=== PATIENT | female | born 1985 | race Caucasian/White ===

== ENCOUNTER 2016-06-10 15:44 | Emergency (ER) | payer SELFPAY ==
[2016-06-10] MEDS ORDERED: Haloperidol Lactate 5 MG/ML SDV IVPUSH ONE (16:06)
[2016-06-10] MEDS ORDERED: diphenhydrAMINE 50 MG/ML SDV IVPUSH ONE (16:08)
[2016-06-10] MEDS ORDERED: LORazepam 2 MG/ML MDV IVPUSH ONE (16:08)
[2016-06-10] MEDS ORDERED: Sodium Chloride 0.9% 1,000 ML IV ONE (16:09)
[2016-06-10] MEDS ORDERED: Sodium Chloride 0.9% 10 ML Syringe FLUSH PRN ×2 (16:10→17:38)
[2016-06-10 16:39] LABS: ACETAMINOPHEN 3.3 ug/mL (10.0-30.0); CHLORIDE,CL 103 mmol/L (98-107); SODIUM,NA 139 mmol/L (136-145)
--- NOTE | 2016-06-10 17:22 | EDM.PDOC ---
ED HPI GENERAL MEDICAL PROBLEM - General Chief Complaint: General Stated Complaint: Behavioral concerns Time Seen by Provider: 06/10/16 15:47 Source of Information: Reports: Patient, EMS, Police - History of Present Illness INITIAL COMMENTS - FREE TEXT/NARRATIVE: Patient brought in by EMS after police were called to the [employer] where patient had been hiding in bathroom for approximately 2 hours per employees. Initially police notified after patient made 911 call from inside bathroom saying her baby was going to prior to hanging up. She did not answer the cell phone when 911 tried to call her back. They managed to localize the source via cell phone tower. Patient found sitting on floor with contents of purse spilled out all around her. When asked what was wrong she did not make any sense. She did give name of person she was hanging out with locally. Per law enforcement he is suspected drug dealer. Patient lives supposedly in [place] and was picked up by the local man to hang out together. She denies using any illicit drugs. 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 Noted to have several empty pill bottles with her. One was for Clonazepam that was filled in the last half of May and is already gone. Patient denies being suicidal or homicidal. Difficult to get straight story or past medical history due to her rambling, tangental/flight of idea thought pattern. Pressured speech. Denies seeing thing that are not there/ hallucinations. Denies hearing voices. Chest Pain Score (Numeric/FACES): 4 - Related Data Allergies Allergy/AdvReac Type Severity Reaction Status Date / Time ceftriaxone sodium Allergy Hives Verified 10/24/14 00:17 [From Rocephin] latex Allergy Hives Verified 10/24/14 00:17 nitrofurantoin Allergy Hives Verified 10/24/14 00:17 [From Macrobid] nitrofurantoin Allergy Hives Verified 10/24/14 00:17 macrocrystalline [From Macrobid] Penicillins Allergy Hives Verified 06/10/16 15:52 Sulfa (Sulfonamide Allergy Hives Verified 10/24/14 00:17 Antibiotics) vancomycin Allergy Hives Verified 10/24/14 00:17 Home Meds: Home Meds ARIPiprazole [Abilify] 10 mg PO DAILY 10/24/14 [History] Levomilnacipran Hydrochloride [Fetzima] 20 mg PO DAILY 10/24/14 [History] Methylphenidate [Concerta] 54 mg PO BID 10/24/14 [History] Past Medical History Cardiovascular History: Reports: Hypertension Other Cardiovascular History: enlarged atrium, tachycardia Gastrointestinal History: Reports: Hemorrhoids, Irritable bowel syndrome Psychiatric History: Reports: Addiction, Other (see below) (On meds suggestive of ADHD/mood disorder but no listing is noted on information from [facility] that was faxed. Uncertain as to specific psych diagnoses) - History Comment History Comment: Recurrent Staph and Strep infections Social & Family History - Tobacco Use Smoking Status *Q: Never Smoker - Recreational Drug Use Recreational Drug Use: No ED ROS GENERAL - Review of Systems Review Of Systems: Unable To Obtain (unable to obtain accurately/reliably) ED EXAM, GENERAL - Physical Exam Exam: See Below Exam Limited By: Other (altered menal status) General Appearance: alert, no apparent distress Eye Exam: bilateral eye: EOMI, PERRL Ears: normal external exam Nose: normal inspection Throat/Mouth: Normal lips, Normal voice, No airway compromise Head: atraumatic, normocephalic Neck: normal inspection, supple, non-tender, full range of motion. No: carotid bruit, lymphadenopathy (L), lymphadenopathy (R) Respiratory/Chest: no respiratory distress, lungs clear, normal breath sounds, no accessory muscle use, chest non-tender Cardiovascular: normal peripheral pulses, no murmur, tachycardia Peripheral Pulses: 2+: radial (L), radial (R) GI/Abdominal: normal bowel sounds, soft, non tender (Female) Exam: Deferred Rectal (Female) Exam: Deferred Back Exam: normal inspection Extremities: normal inspection, normal range of motion, non-tender, no pedal edema, normal capillary refill Neurological: alert, CN II-XII intact, no motor/sensory deficits, confused, disoriented Psychiatric: other (pressured speech, tangental thoughts, flight of ideas. Not suicidal or homicidal. Cooperative with staff. No obvious visual or auditory hallucinations. ) Skin Exam: Warm, Dry, Intact, Normal color Course - Vital Signs Last Recorded V/S: Last Vital Signs Temp 37.4 C 06/10/16 15:45 Pulse 115 H 06/10/16 15:45 Resp 24 H 06/10/16 15:45 BP 159/106 H 06/10/16 15:45 Pulse Ox 100 06/10/16 15:45 - Orders/Labs/Meds Orders: Active Orders 24 hr Category Date Time Status Cardiac Monitoring [RC] . DIRECTED Care 06/10/16 17:38 Active SALICYLATE [REF] Stat Lab 06/10/16 15:48 Ordered Sodium Chloride 0.9% [Saline Flush] Med 06/10/16 16:10 Ordered 10 ml FLUSH ASDIRECTED PRN Sodium Chloride 0.9% [Saline Flush] Med 06/10/16 17:38 Active 10 ml FLUSH ASDIRECTED PRN Saline Lock Insert [OM.PC] Routine Oth 06/10/16 17:38 Ordered Saline Lock Insert [OM.PC] Stat Oth 06/10/16 16:10 Ordered Medication Orders Sodium Chloride (Saline Flush) 10 ml FLUSH ASDIRECTED PRN PRN Reason: Keep Vein Open Sodium Chloride (Saline Flush) 10 ml FLUSH ASDIRECTED PRN PRN Reason: Keep Vein Open Labs: Laboratory Tests 06/10/16 06/10/16 06/10/16 Range/Units 16:15 16:15 16:15 WBC (4.0-10.2) K/uL RBC (3.77-5.09) M/uL Hgb (11.7-15.5) g/dL Hct (34.0-46.0) % MCV (84.0-98.0) fL MCH (28.2-33.3) pg MCHC (31.7-36.0) g/dL RDW (11.2-14.1) % Plt Count (150-350) K/uL Neut % (Auto) (45.0-80.0) % Lymph % (Auto) (10.0-50.0) % [place] % (Auto) (2.0-14.0) % Eos % (Auto) (0.0-5.0) % Baso % (Auto) (0.0-2.0) % Neut # (1.40-7.00) K/uL Lymph # (0.50-3.50) K/uL [place] # (0.00-1.00) K/uL Eos # (0.00-0.50) K/uL Baso # (0.00-0.20) K/uL Sodium (136-145) mmol/L Potassium (3.5-5.1) mmol/L Chloride (98-107) mmol/L Carbon Dioxide (21.0-32.0) mmol/L BUN (7-18) mg/dL Creatinine (0.51-1.17) mg/dL Est Cr Clr Drug Dosing mL/min Estimated GFR (MDRD) mL/min Glucose (74-106) mg/dL Calcium (8.5-10.1) mg/dL Total Bilirubin (0.2-1.0) mg/dL AST (15-37) U/L ALT (12-78) U/L Alkaline Phosphatase (46-116) IU/L Total Protein (6.4-8.2) g/dL Albumin (3.4-5.0) g/dL Specimen Type Urinvoid Urine Color Yellow Urine Appearance Clear Urine pH 6.5 (5.0-9.0) Ur Specific [place] 1.025 (1.005-1.030) Urine Protein 100 H (NEGATIVE) mg/dL Urine Glucose (UA) Negative (NEGATIVE) mg/dL Urine Ketones Negative (NEGATIVE) mg/dL Urine Occult Blood Negative (NEGATIVE) Urine Nitrite Negative (NEGATIVE) Urine Bilirubin Negative (NEGATIVE) Urine Urobilinogen 0.2 (0.2-1.0) E.U./dL Ur Leukocyte Esterase Negative (NEGATIVE) Urine RBC 0-5 /HPF Urine WBC 5-10 H /HPF Ur Epithelial Cells Moderate H /LPF Urine Bacteria Few (NONE TO FEW) /HPF Urine Mucus Few H (NEGATIVE) /LPF Urine HCG, Qual Negative Urine Opiates Screen Positive H (NEGATIVE) Urine Methadone Screen Negative (NEGATIVE) Acetaminophen (10.0-30.0) ug/mL U Acetaminophen Screen Positive H (NEGATIVE) Ur Barbiturates Screen Negative (NEGATIVE) Ur Tricyclics Screen Negative (NEGATIVE) Ur Phencyclidine Scrn Negative (NEGATIVE) Ur Amphetamine Screen Positive H (NEGATIVE) U Methamphetamines Scrn Positive H (NEGATIVE) U Benzodiazepines Scrn Positive H (NEGATIVE) U Cocaine Metab Screen Negative (NEGATIVE) U Marijuana (THC) Screen Negative (NEGATIVE) Ethyl Alcohol (0.000-0.080) g/dL 06/10/16 06/10/16 Range/Units 16:20 16:20 WBC 7.4 (4.0-10.2) K/uL RBC 4.19 (3.77-5.09) M/uL Hgb 11.4 L (11.7-15.5) g/dL Hct 34.8 (34.0-46.0) % MCV 83.1 L (84.0-98.0) fL MCH 27.2 L (28.2-33.3) pg MCHC 32.8 (31.7-36.0) g/dL RDW 14.2 H (11.2-14.1) % Plt Count 326 (150-350) K/uL Neut % (Auto) 67.5 (45.0-80.0) % Lymph % (Auto) 22.1 (10.0-50.0) % [place] % (Auto) 8.3 (2.0-14.0) % Eos % (Auto) 1.1 (0.0-5.0) % Baso % (Auto) 1.0 (0.0-2.0) % Neut # 4.97 (1.40-7.00) K/uL Lymph # 1.63 (0.50-3.50) K/uL [place] # 0.61 (0.00-1.00) K/uL Eos # 0.08 (0.00-0.50) K/uL Baso # 0.07 (0.00-0.20) K/uL Sodium 139 (136-145) mmol/L Potassium 3.1 L (3.5-5.1) mmol/L Chloride 103 (98-107) mmol/L Carbon Dioxide 25.0 (21.0-32.0) mmol/L BUN 16 (7-18) mg/dL Creatinine 0.66 (0.51-1.17) mg/dL Est Cr Clr Drug Dosing 106.65 mL/min Estimated GFR (MDRD) > 60 mL/min Glucose 106 (74-106) mg/dL Calcium 8.5 (8.5-10.1) mg/dL Total Bilirubin 0.2 (0.2-1.0) mg/dL AST 20 (15-37) U/L ALT 20 (12-78) U/L Alkaline Phosphatase 68 (46-116) IU/L Total Protein 7.1 (6.4-8.2) g/dL Albumin 4.1 (3.4-5.0) g/dL Specimen Type Urine Color Urine Appearance Urine pH (5.0-9.0) Ur Specific [place] (1.005-1.030) Urine Protein (NEGATIVE) mg/dL Urine Glucose (UA) (NEGATIVE) mg/dL Urine Ketones (NEGATIVE) mg/dL Urine Occult Blood (NEGATIVE) Urine Nitrite (NEGATIVE) Urine Bilirubin (NEGATIVE) Urine Urobilinogen (0.2-1.0) E.U./dL Ur Leukocyte Esterase (NEGATIVE) Urine RBC /HPF Urine WBC /HPF Ur Epithelial Cells /LPF Urine Bacteria (NONE TO FEW) /HPF Urine Mucus (NEGATIVE) /LPF Urine HCG, Qual Urine Opiates Screen (NEGATIVE) Urine Methadone Screen (NEGATIVE) Acetaminophen 3.3 L (10.0-30.0) ug/mL U Acetaminophen Screen (NEGATIVE) Ur Barbiturates Screen (NEGATIVE) Ur Tricyclics Screen (NEGATIVE) Ur Phencyclidine Scrn (NEGATIVE) Ur Amphetamine Screen (NEGATIVE) U Methamphetamines Scrn (NEGATIVE) U Benzodiazepines Scrn (NEGATIVE) U Cocaine Metab Screen (NEGATIVE) U Marijuana (THC) Screen (NEGATIVE) Ethyl Alcohol 0.003 (0.000-0.080) g/dL Meds: Medications Generic Name Dose Route Start Last Admin Trade Name Freq PRN Reason Stop Dose Admin Sodium Chloride 10 ml 06/10/16 16:10 Saline Flush FLUSH ASDIRECTED PRN Keep Vein Open Sodium Chloride 10 ml 06/10/16 17:38 Saline Flush FLUSH ASDIRECTED PRN Keep Vein Open Discontinued Medications Generic Name Dose Route Start Last Admin Trade Name Freq PRN Reason Stop Dose Admin Diphenhydramine HCl 50 mg 06/10/16 16:08 06/10/16 16:34 Benadryl IVPUSH 06/10/16 16:09 50 mg ONETIME ONE Administration Haloperidol Lactate 5 mg 06/10/16 16:06 06/10/16 16:33 Haldol IVPUSH 06/10/16 16:07 5 mg ONETIME ONE Administration Sodium Chloride 1,000 mls @ 999 mls/hr 06/10/16 16:09 06/10/16 16:32 Normal Saline IV 06/10/16 17:09 999 mls/hr .BOLUS ONE Administration Lorazepam 1 mg 06/10/16 16:08 06/10/16 16:33 Ativan IVPUSH 06/10/16 16:09 1 mg ONETIME ONE Administration Potassium Chloride 40 meq 06/10/16 17:30 Klor-Con M20 PO 06/10/16 17:31 ONETIME ONE - Re-Assessments/Exams Free Text/Narrative Re-Assessment/Exam: 06/10/16 17:30 Patient found to be positive for Meth/Amphetamines/Opioids/Benzos. When told this she claimed she was forced to take the drugs but the man she was hanging out with this weekend. She then told us that she was working with the [employer] in [place] and was under cover today. She was at times paranoid about the people she was hanging around with this weekend. Negative test. CBC/Chem/UA otherwise showed no acute significant changes. K below normal. PO dose ordered as IV fluids given. Patient unsafe at this time given the drug-induced psychosis. Will need monitoring while drugs have time to wear off. Given Ativan, Haldol, and Benadryl in ER. BP and heart rate improved. Patient slept and was noted to have intermittent whole-body twitching. [facility] accepted patient. Dr.Kakadia ana [place]UL[place]. Plan at this time is to transfer by ALS to [facility]. 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 DIRECTED Sodium Chloride 0.9% [Saline Flush] 10 ml FLUSH ASDIRECTED PRN Saline Lock Insert [OM.PC] Routine - Assessment/Plan Last 24 Hours: My Active Orders 06/10/16 15:48 SALICYLATE [REF] Stat 06/10/16 16:10 Sodium Chloride 0.9% [Saline Flush] 10 ml FLUSH ASDIRECTED PRN Saline Lock Insert [OM.PC] Stat 06/10/16 17:38 Cardiac Monitoring [RC] . DIRECTED Sodium Chloride 0.9% [Saline Flush] 10 ml FLUSH ASDIRECTED PRN Saline Lock Insert [OM.PC] Routine
[2016-06-10] MEDS ORDERED: Potassium Chloride 20 MEQ Tab.ER PO ONE (17:30)
[2016-06-10 18:12] VITALS: BP 115/76
== END 2016-06-10 18:15 ==
LOC: LL.ED 15:44
DX: F15.959 Other stimulant use, unspecified with stimulant-induced psychotic disorder, unspecified (principal); Z88.8 Allergy status to other drugs, medicaments and biological substances; Z88.0 Allergy status to penicillin; Z88.2 Allergy status to sulfonamides; Z79.899 Other long term (current) drug therapy
CPT/HCPCS: 36415; 80053; 80305; 81001; 81025; 85025; 96361; 96374; 96375; 99285; G0479; G0480; J1200; J1630; J2060; J7030; 99284